=== PATIENT | female | born 1960 | race Caucasian/White ===

== ENCOUNTER 2021-06-27 08:37 | Outpatient (REF) | payer OTHER, SELFPAY ==
--- NOTE | ~2021-06-27 | XR_ITS ---
EXAMINATION: XR HIP, RIGHT XR KUB CLINICAL INFORMATION: Right hip pain. COMPARISON: None TECHNIQUE: KUB and 2 views of the right hip. FINDINGS: There is a large stool burden seen throughout the colon. No dilated loops of large or small bowel are evident. Psoas margins are intact. Oval density seen overlying the right sacrum but may lie within bowel. Sacroiliac joints unremarkable. Degenerative joint disease with facet arthropathy is seen L5-S1. Views of the right hip demonstrate severe narrowing of the superior joint space. Marginal spurring and sclerosis is present. There appears to be some articular irregularity about the joint space. No acute fracture is evident. XR/XR hip RT min 2V IMPRESSION: Severe degenerative change of the right hip without acute fracture or dislocation. Large stool burden.
--- NOTE | ~2021-06-27 | XR_ITS ---
EXAMINATION: XR HIP, RIGHT XR KUB CLINICAL INFORMATION: Right hip pain. COMPARISON: None TECHNIQUE: KUB and 2 views of the right hip. FINDINGS: There is a large stool burden seen throughout the colon. No dilated loops of large or small bowel are evident. Psoas margins are intact. Oval density seen overlying the right sacrum but may lie within bowel. Sacroiliac joints unremarkable. Degenerative joint disease with facet arthropathy is seen L5-S1. Views of the right hip demonstrate severe narrowing of the superior joint space. Marginal spurring and sclerosis is present. There appears to be some articular irregularity about the joint space. No acute fracture is evident. XR/XR KUB IMPRESSION: Severe degenerative change of the right hip without acute fracture or dislocation. Large stool burden.
[2021-06-27 11:26] LABS: Hematocrit 42.9 % (37-47); Hemoglobin 13.8 g/dl (12.0-16.0); Mean Corpuscular HGB Conc 32.2 g/dl (31.0-35.0); Mean Corpuscular Hemoglobin 28.3 pg (27.0-33.0); Mean Corpuscular Volume 87.9 fL (80-98); Mean Platelet Volume 10.2 fL (9.4-12.3); Platelet Count 327 X10*3/uL (160-400); Red Blood Count 4.88 X10*6/uL (4.20-5.50); Red Cell Distribution Width 13.1 % (11.0-16.0); White Blood Count 8.6 X10*3/uL (4.8-10.8)
[2021-06-27 11:27] LABS: Glucose Urine UA NEG (NEG); Leukocyte Esterase Urine 3+ (NEG); Nitrite Urine POS (NEG); PH 5.5 (5.0-8.0); Urine Blood 1+ (NEG); Urine Ketones NEG (NEG); Urine Protein NEG (NEG-TRACE)
[2021-06-27 11:29] LABS: Appearance Urine CLOUDY; Color Urine YELLOW
[2021-06-27 11:36] LABS: Alanine Aminotransferase 18 U/L (0-31); Albumin Level 4.4 g/dL (3.5-5.0); Alkaline Phosphatase 94 U/L (39-117); Anion Gap 13 (12-20); Aspartate Amino Transferase 18 U/L (5-31); Bilirubin Total 0.5 mg/dL (0.0-1.0); Blood Urea Nitrogen 8 mg/dL (9-16); Carbon Dioxide 28 mmol/L (22-29); Chloride 104 mmol/L (96-108); Cholesterol 251 mg/dL; Estimated Glomerular Filt Rate > 60; Glucose Fasting 131 mg/dL (60-99); HDL Cholesterol 49 mg/dL; LDL Cholesterol Calculated 182 mg/dl; Sodium 141 mmol/L (135-145); Total Protein 7.2 g/dL (6.5-8.0); Triglycerides 101 mg/dL
[2021-06-27 11:46] LABS: Bacteria Urine 2+ /LPF; Squamous Epithelial Cell Urine 1+ /LPF; WBC Clumps Urine NOTED; WBC Urine TNTC /HPF (0-4)
[2021-06-27 12:00] LABS: TSH reflex Free T4 5.36 uIU/mL (0.32-4.0)
[2021-06-27 12:02] LABS: Estimated Average Glucose 114 mg/dL; Hemoglobin A1c % 5.6 %
[2021-06-27 12:38] LABS: Free T4 (Free Thyroxine) 0.94 ng/dL (0.71-1.85)
== END 2021-06-27 08:38 | disposition home or self-care (01) ==
LOC: HO.HMGCX 08:37
PROVIDERS: PCP Internal Medicine; Visit Provider Internal Medicine
DX: Z00.00 Encounter for general adult medical examination without abnormal findings (principal); M25.551 Pain in right hip; I10 Essential (primary) hypertension; N20.0 Calculus of kidney
CPT/HCPCS: 36415; 73502; 74018; 80053; 80061; 81001; 83036; 84439; 84443; 85027

== ENCOUNTER 2021-06-27 10:09 | Outpatient (REF) | payer OTHER, SELFPAY ==
[2021-07-03 19:46] LABS: HPV mRNA E6/E7 Not Detected (Not Detected)
== END 2021-06-27 10:10 | disposition home or self-care (01) ==
LOC: HO.LAB 10:09
PROVIDERS: Visit Provider Internal Medicine
DX: Z12.4 Encounter for screening for malignant neoplasm of cervix (principal); Z11.51 Encounter for screening for human papillomavirus (HPV)
CPT/HCPCS: 87624; 88142

== ENCOUNTER 2021-07-03 14:34 | Outpatient (REF) | payer OTHER, SELFPAY ==
[2021-07-03 17:07] LABS: Appearance Urine CLOUDY; Color Urine YELLOW; Glucose Urine UA 250 MG/DL (NEG); Leukocyte Esterase Urine 2+ (NEG); Nitrite Urine POS (NEG); UACC Culture Trigger YES; Urine Blood 2+ (NEG); Urine Ketones NEG (NEG); Urine Protein TRACE MG/DL (NEG-TRACE)
[2021-07-03 17:27] LABS: Amorphous Sediment Urine TRACE /LPF; Bacteria Urine 1+ /LPF; Squamous Epithelial Cell Urine TRACE /LPF; WBC Urine TNTC /HPF (0-4)
== END 2021-07-03 14:35 | disposition home or self-care (01) ==
LOC: HO.HMGCLDS 14:34
PROVIDERS: PCP Internal Medicine; Visit Provider Internal Medicine
DX: Z13.89 Encounter for screening for other disorder (principal)
CPT/HCPCS: 81001; 81003; 87086; 87088; 87186

== ENCOUNTER 2021-07-31 14:23 | Outpatient (REF) | payer OTHER, SELFPAY | END 2021-07-31 14:24 | disposition home or self-care (01) | LOC: HO.HMGCLDS 14:23 | PROVIDERS: PCP Internal Medicine; Visit Provider Internal Medicine | DX: Z13.89 Encounter for screening for other disorder (principal) ==

== ENCOUNTER 2021-08-01 14:59 | Outpatient (REF) | payer OTHER, SELFPAY ==
[2021-08-01 16:33] LABS: Appearance Urine HAZY; Color Urine YELLOW; Glucose Urine UA 100 MG/DL (NEG); Leukocyte Esterase Urine 2+ (NEG); Nitrite Urine NEG (NEG); UACC Culture Trigger YES; Urine Blood NEG (NEG); Urine Ketones NEG (NEG); Urine Protein NEG (NEG-TRACE)
[2021-08-01 16:42] LABS: Mucus Urine 1+ /LPF; Renal Epithelial Cells Urine TRACE /LPF; Squamous Epithelial Cell Urine TRACE /LPF
[2021-08-01 16:43] LABS: RBC Urine 0 /HPF (0)
== END 2021-08-01 15:00 | disposition home or self-care (01) ==
LOC: HO.HMGCLNP 14:59
PROVIDERS: Visit Provider Internal Medicine
DX: N39.0 Urinary tract infection, site not specified (principal); R73.9 Hyperglycemia, unspecified; I10 Essential (primary) hypertension
CPT/HCPCS: 81001; 87086

== ENCOUNTER 2021-08-05 15:35 | Outpatient (REF) | payer OTHER, SELFPAY ==
--- NOTE | ~2021-08-05 | MM_ITS ---
EXAMINATION: MM SCREENING DIGITAL BREAST TOMOSYNTHESIS, BILATERAL CLINICAL INFORMATION: Screening. Asymptomatic. The lifetime risk of breast cancer based on the Tyrer-Cuzick Model is 11.5%. COMPARISON: Mammography: None. TECHNIQUE: Digital breast tomosynthesis is performed in both the craniocaudal and mediolateral oblique views along with computer-aided detection (CAD). Synthesized 2-D images are generated from the tomosynthesis. FINDINGS: There are scattered areas of fibroglandular density (ACR BI-RADS breast composition Category b). No suspicious left breast findings identified. Within the upper outer aspect of the right breast, there is an asymmetric density with some irregular margins approximately 9 cm from nipple, for which spot compression films are recommended. MM/MM tomosynthesis screening BI IMPRESSION: Right breast density for further evaluation, as described. ASSESSMENT: BI-RADS 0: Incomplete - Need Additional Imaging Evaluation. RECOMMENDATION: 1. Additional views of the right breast. 2. Targeted ultrasound if warranted after review of the additional views. 3. Radiology department staff will contact the patient for additional imaging. This patient's information was entered into a reminder system with a target due date for their next mammogram.
== END 2021-08-05 15:36 | disposition home or self-care (01) ==
LOC: HO.MAMMO 15:35
PROVIDERS: Visit Provider Internal Medicine
DX: Z12.31 Encounter for screening mammogram for malignant neoplasm of breast (principal)
CPT/HCPCS: 77063; 77067

== ENCOUNTER 2021-08-08 11:19 | Outpatient (REF) | payer OTHER, SELFPAY ==
[2021-08-08 14:17] LABS: Anion Gap 14 (12-20); Blood Urea Nitrogen 34 mg/dL (9-16); Calcium 10.9 mg/dL (8.4-10.2); Carbon Dioxide 31 mmol/L (22-29); Chloride 101 mmol/L (96-108); Estimated Glomerular Filt Rate 53; Glucose Random 117 mg/dL (60-115); Potassium 4.5 mmol/L (3.3-5.1); Sodium 141 mmol/L (135-145)
== END 2021-08-08 11:20 | disposition home or self-care (01) ==
LOC: HO.HMGCLDS 11:19
PROVIDERS: PCP Internal Medicine; Visit Provider Internal Medicine
DX: I10 Essential (primary) hypertension (principal); E03.9 Hypothyroidism, unspecified
CPT/HCPCS: 36415; 80048

== ENCOUNTER 2021-08-22 12:21 | Outpatient (REF) | payer OTHER, SELFPAY ==
[2021-08-22 14:23] LABS: Anion Gap 13 (12-20); Blood Urea Nitrogen 15 mg/dL (9-16); Calcium 9.5 mg/dL (8.4-10.2); Carbon Dioxide 30 mmol/L (22-29); Chloride 100 mmol/L (96-108); Estimated Glomerular Filt Rate 60; Glucose Random 94 mg/dL (60-115); Potassium 3.8 mmol/L (3.3-5.1); Sodium 139 mmol/L (135-145)
[2021-08-22 14:46] LABS: Vitamin D 25-OH Total 42.5 ng/mL (>30)
[2021-08-25 10:17] LABS: Calcium, Ionized 4.9 mg/dL (4.8-5.6)
[2021-08-25 14:31] LABS: Calcium (PTHI) 9.7 mg/dL (8.6-10.4); PTHI 53 pg/mL (14-64)
== END 2021-08-22 12:22 | disposition home or self-care (01) ==
LOC: HO.HMGCLDS 12:21
PROVIDERS: PCP Internal Medicine; Visit Provider Internal Medicine
DX: E83.52 Hypercalcemia (principal)
CPT/HCPCS: 36415; 80048; 82306; 82330; 83970

== ENCOUNTER 2021-08-28 12:18 | Outpatient (REF) | payer OTHER, SELFPAY ==
--- NOTE | ~2021-08-28 | MM_ITS ---
EXAMINATION: MM DIAGNOSTIC DIGITAL BREAST TOMOSYNTHESIS, RIGHT CLINICAL INFORMATION: Recall from screening for asymmetric density posterior upper right breast on MLO tomography. TC score 12%. COMPARISON: Mammography: 08/05/2021; outside mammography 04/05/2018, 05/08/2015, 08/21/2013 ([facility], [place], [place]). TECHNIQUE: Digital breast tomosynthesis is performed. 2D images are generated from the tomosynthesis. The following views are obtained: Spot CC, spot MLO, rolled CC x2. FINDINGS: There are scattered areas of fibroglandular density (ACR BI-RADS breast composition Category b). There are scattered fibroglandular densities which appears similar to prior outside studies. There is no architectural abnormality or persistent asymmetric density. Results are discussed with the patient at time of visit. As a precaution, short interval six-month follow-up right mammography will be requested in order to exclude remote possibility of an occult developing density. MM/MM tomosynthesis added views R IMPRESSION: Additional views show no persistent asymmetric density. No significant changes. ASSESSMENT: BI-RADS 3: Probably Benign RECOMMENDATION: Diagnostic right mammography in 6 months. This patient's information was entered into a reminder system with a target due date for their next mammogram.
== END 2021-08-28 12:19 | disposition home or self-care (01) ==
LOC: HO.MAMMO 12:18
PROVIDERS: Visit Provider Internal Medicine
DX: R92.2 Inconclusive mammogram (principal)
CPT/HCPCS: 77061; 77065

== ENCOUNTER 2021-09-16 07:45 | Outpatient (REF) | payer OTHER, SELFPAY ==
[2021-09-16 11:53] LABS: Alanine Aminotransferase 14 U/L (0-31); Albumin Level 4.5 g/dL (3.5-5.0); Alkaline Phosphatase 81 U/L (39-117); Anion Gap 15 (12-20); Aspartate Amino Transferase 15 U/L (5-31); Bilirubin Total 0.6 mg/dL (0.0-1.0); Blood Urea Nitrogen 20 mg/dL (9-16); Calcium 10.2 mg/dL (8.4-10.2); Carbon Dioxide 28 mmol/L (22-29); Chloride 102 mmol/L (96-108); Cholesterol 247 mg/dL; Estimated Glomerular Filt Rate 53; Glucose Fasting 121 mg/dL (60-99); HDL Cholesterol 53 mg/dL; LDL Cholesterol Calculated 175 mg/dl; Potassium 4.3 mmol/L (3.3-5.1); Sodium 141 mmol/L (135-145); Total Protein 7.6 g/dL (6.5-8.0); Triglycerides 96 mg/dL
[2021-09-16 12:14] LABS: TSH reflex Free T4 6.92 uIU/mL (0.32-4.0)
[2021-09-16 12:52] LABS: Free T4 (Free Thyroxine) 1.04 ng/dL (0.71-1.85)
[2021-09-16 13:39] LABS: Estimated Average Glucose 134 mg/dL; Hemoglobin A1c % 6.3 %
== END 2021-09-16 07:46 | disposition home or self-care (01) ==
LOC: HO.HMGCLDS 07:45
PROVIDERS: PCP Internal Medicine; Visit Provider Internal Medicine
DX: E78.5 Hyperlipidemia, unspecified (principal); E03.9 Hypothyroidism, unspecified; I10 Essential (primary) hypertension; R73.9 Hyperglycemia, unspecified
CPT/HCPCS: 36415; 80053; 80061; 83036; 84439; 84443

== ENCOUNTER 2022-03-02 09:44 | Outpatient (REF) | payer OTHER, SELFPAY ==
--- NOTE | ~2022-03-02 | MM_ITS ---
EXAMINATION: MM DIAGNOSTIC DIGITAL BREAST TOMOSYNTHESIS, RIGHT CLINICAL INFORMATION: Short interval six-month follow-up right breast for parenchymal asymmetry initially noted on mammography 08/05/2021. TC score 11%. COMPARISON: Mammography: 08/28/2021, 08/05/2021; outside mammography 04/05/2018, 05/08/2015, 08/21/2013 ([facility], [place], [place]). TECHNIQUE: Digital breast tomosynthesis is performed in both the craniocaudal and mediolateral oblique views along with computer-aided detection (CAD). Synthesized 2D images are generated from the tomosynthesis. FINDINGS: There are scattered areas of fibroglandular density (ACR BI-RADS breast composition Category b). Parenchymal pattern is similar to prior studies dating back to 2012. There is no developing density or interval architectural abnormality or mass or abnormal calcifications. No significant changes. Finding for recall noted in 2020 is no longer demonstrated. Results are provided to the patient at time of visit by the technologist. MM/MM tomosynthesis diagnostic RT IMPRESSION: -No mammographic evidence of malignancy. -No significant changes from prior studies. ASSESSMENT: BI-RADS 2: Benign RECOMMENDATION: Routine annual mammography screening, due in 6 months. This patient's information was entered into a reminder system with a target due date for their next mammogram.
== END 2022-03-02 09:45 | disposition home or self-care (01) ==
LOC: HO.MAMMO 09:44
PROVIDERS: Visit Provider Internal Medicine
DX: R92.2 Inconclusive mammogram (principal)
CPT/HCPCS: 77061; 77065

== ENCOUNTER → 2022-03-12 12:57 | Outpatient (BNVA) | payer OTHER, SELFPAY | PROVIDERS: PCP Internal Medicine; Referring Provider Internal Medicine; Visit Provider Internal Medicine Gastroenterology | DX: K51.90 Ulcerative colitis, unspecified, without complications (principal); K21.9 Gastro-esophageal reflux disease without esophagitis; R93.3 Abnormal findings on diagnostic imaging of other parts of digestive tract | CPT/HCPCS: 99202 ==

== ENCOUNTER 2022-08-19 07:37 | Outpatient (REF) | payer OTHER, SELFPAY ==
--- NOTE | ~2022-08-19 | MM_ITS ---
EXAMINATION: MM SCREENING DIGITAL BREAST TOMOSYNTHESIS, BILATERAL CLINICAL INFORMATION: Screening. Asymptomatic. The lifetime risk of breast cancer based on the Tyrer-Cuzick Model is 10%. COMPARISON: Mammography: 03/02/2022, 08/28/2021, 08/05/2021, outside mammography 04/05/2018 ([facility], [place], [place]). TECHNIQUE: Digital breast tomosynthesis is performed in both the craniocaudal and mediolateral oblique views along with computer-aided detection (CAD). Synthesized 2D images are generated from the tomosynthesis. FINDINGS: There are scattered areas of fibroglandular density (ACR BI-RADS breast composition Category b). There are no significant masses, abnormal calcifications, or other abnormalities. No developing density or interval architectural abnormality. There are scattered bilateral round and ductal secretory calcifications. The axilla and skin contours are unremarkable. MM/MM tomosynthesis screening BI IMPRESSION: No mammographic evidence of malignancy. ASSESSMENT: BI-RADS 2: Benign RECOMMENDATION: Routine annual mammography screening. This patient's information was entered into a reminder system with a target due date for their next mammogram.
== END 2022-08-19 07:38 | disposition home or self-care (01) ==
LOC: HO.MAMMO 07:37
PROVIDERS: PCP Internal Medicine; Visit Provider Internal Medicine
DX: Z12.31 Encounter for screening mammogram for malignant neoplasm of breast (principal)
CPT/HCPCS: 77063; 77067

== ENCOUNTER 2022-11-10 08:18 | Outpatient (REF) | payer OTHER, SELFPAY ==
[2022-11-10 11:49] LABS: MANUAL DIFF FLAG NO
[2022-11-10 12:02] LABS: Basophils Absolute Auto 0.1 X10*3/uL (0.0-0.2); Basophils Percent Auto 0.9 % (0-2); Eosinophils Absolute Auto 0.3 X10*3/uL (0.0-0.4); Eosinophils Percent Auto 3.1 % (0-4); Hemoglobin 12.3 g/dl (12.0-16.0); Imm Gran Abs Auto 0.02 X10*3/uL (0.00-0.03); Imm Gran Pct Auto 0.2 % (0.0-0.4); Lymphocytes Percent Auto 37.3 % (20-40); Mean Corpuscular HGB Conc 31.5 g/dl (31.0-35.0); Mean Corpuscular Hemoglobin 27.7 pg (27.0-33.0); Mean Corpuscular Volume 87.8 fL (80.0-98.0); Mean Platelet Volume 10.2 fL (9.4-12.3); Monocytes Absolute Auto 0.8 X10*3/uL (0.1-1.2); Monocytes Percent Auto 9.9 % (2-11); Neutrophils Absolute Auto 3.9 x10*3/uL (2.0-8.3); Neutrophils Percent Auto 48.6 % (45-73); Platelet Count 288 X10*3/uL (160-400); Red Blood Count 4.44 X10*6/uL (4.20-5.50); Red Cell Distribution Width 13.8 % (11.0-16.0); White Blood Count 8.1 X10*3/uL (4.8-10.8)
[2022-11-10 12:20] LABS: Estimated Average Glucose 134 mg/dL; Hemoglobin A1C 150.2266 umol/L; Hemoglobin A1c % 6.3 %
[2022-11-10 13:04] LABS: Alanine Aminotransferase 14 U/L (0-31); Albumin Level 4.3 g/dL (3.5-5.0); Alkaline Phosphatase 74 U/L (39-117); Anion Gap 15 (12-20); Aspartate Amino Transferase 19 U/L (5-31); Bilirubin Total 0.5 mg/dL (0.0-1.0); Blood Urea Nitrogen 25 mg/dL (9-16); Carbon Dioxide 29 mmol/L (22-29); Chloride 101 mmol/L (96-108); Cholesterol 171 mg/dL; Estimated Glomerular Filt Rate 42; Glucose Fasting 145 mg/dL (60-99); HDL Cholesterol 53 mg/dL; LDL Cholesterol Calculated 90 mg/dl; Potassium 4.3 mmol/L (3.3-5.1); Sodium 141 mmol/L (135-145); Total Protein 7.4 g/dL (6.5-8.0); Triglycerides 144 mg/dL
[2022-11-10 13:05] LABS: TSH reflex Free T4 2.84 uIU/mL (0.32-4.0)
== END 2022-11-10 08:19 | disposition home or self-care (01) ==
LOC: HO.HMGCLDS 08:18
PROVIDERS: PCP Internal Medicine; Visit Provider Internal Medicine
DX: E03.9 Hypothyroidism, unspecified (principal); R73.9 Hyperglycemia, unspecified; E78.5 Hyperlipidemia, unspecified; I10 Essential (primary) hypertension
CPT/HCPCS: 36415; 80053; 80061; 83036; 84443; 85025

== ENCOUNTER 2023-03-12 11:51 | Day surgery (SDC) | payer OTHER, SELFPAY ==
--- NOTE | 2023-03-11 10:26 | P.CONAN_ITS ---
Documented by User: Marie Martinez NP 03/11/23 10:28 HPI - Anesthesia Eval Consult details Narrative: 62yo F for Upper Endoscopy and Colonoscopy [facility] Active Problems Active Problems: All Active Problems (Updated 12/01/22 @ 08:08 by Karen Duval MD) GERD (gastroesophageal reflux disease) (Acute) Hypercalcemia (Acute) Hyperglycemia (Acute) Hyperlipidemia (Acute) Hypothyroid (Acute) Annual physical exam (Acute) Gestational diabetes mellitus (Acute) HTN (hypertension) (Acute) Abnormal colonoscopy (Acute) Ulcerative colitis (Acute) Normal Pap smear (Acute) Hyperparathyroidism (Acute) Nephrolithiasis (Acute) Hip pain, right (Acute) Past Medical History Medical History Abnormal colonoscopy Annual physical exam Gestational diabetes mellitus Hip pain, right History of kidney stones HTN (hypertension) Hx of nephrolithotomy with removal of calculi Hypercalcemia Hyperglycemia Hyperlipidemia Hyperparathyroidism Hypothyroid Nephrolithiasis Normal Pap smear Ulcerative colitis Family History Family History Mother Mental health disorder Father No problems noted. Surgical History Surgical History History of total right hip replacement Hx of section Hx of parathyroidectomy Social History Social History Household Members Other:: , special education aid Housing: House Patient Tobacco Use Status: Former Tobacco user Years Smoked: 10 yrs e-Cigarette/Vaping Use: Never Used Second Hand Smoke Exposure: No Are you DNR?: No Advance Directives: No Advance Directives Information Provided: Yes Nutrition Risks: No Nutritional Risk service: No Current occupational status: employed Cognitive needs: No Hearing needs: No Vision needs: No Meds Allergies Allergy/AdvReac Type Severity Reaction Status Date / Time nitrofurantoin AdvReac dry heves Verified 03/12/23 12:28 [From Macrobid] Sulfa (Sulfonamide AdvReac hives Verified 03/12/23 12:28 Antibiotics) Home Medications Medication Instructions Recorded Confirmed Last Taken Type acetaminophen 650 mg 650 mg PO Q12H 07/31/21 01/27/23 Unknown History tablet,extended release (Tylenol Arthritis Pain) omeprazole 20 mg capsule,delayed 20 mg PO DAILY 12/01/22 01/27/23 Unknown History release olmesartan 20 1 tab PO DAILY 01/27/23 01/27/23 Unknown History mg-hydrochlorothiazide 12.5 mg tablet Exam Exam Date and Time: March 11, 2023 1026 Pertinent Lab Results Pertinent Lab Results: Laboratory Tests 11/10/22 11/10/22 08:22 08:22 WBC 8.1 Hgb 12.3 Hct 39.0 Plt Count 288 Sodium 141 Potassium 4.3 Chloride 101 Carbon Dioxide 29 BUN 25 H Creatinine 1.28 Assessment and Plan Assessment Anesthesia Assessment: Chart Reviewed Documented by User: Lnio Clark MD 03/12/23 13:04 PMF Past Medical History Medical History Abnormal colonoscopy Annual physical exam Gestational diabetes mellitus Hip pain, right History of kidney stones HTN (hypertension) Hx of nephrolithotomy with removal of calculi Hypercalcemia Hyperglycemia Hyperlipidemia Hyperparathyroidism Hypothyroid Nephrolithiasis Normal Pap smear Ulcerative colitis Family History Family History Mother Mental health disorder Father No problems noted. Family history of problems with anesthesia: No Surgical History Surgical History History of total right hip replacement Hx of section Hx of parathyroidectomy History of Problems with Anesthesia: No Social History Social History Household Members Other:: , special education aid Housing: House Patient Tobacco Use Status: Former Tobacco user Years Smoked: 10 yrs e-Cigarette/Vaping Use: Never Used Second Hand Smoke Exposure: No Are you DNR?: No Advance Directives: No Advance Directives Information Provided: Yes Nutrition Risks: No Nutritional Risk service: No Current occupational status: employed Cognitive needs: No Hearing needs: No Vision needs: No Meds Allergies Allergy/AdvReac Type Severity Reaction Status Date / Time nitrofurantoin AdvReac dry heves Verified 03/12/23 12:28 [From Macrobid] Sulfa (Sulfonamide AdvReac hives Verified 03/12/23 12:28 Antibiotics) Home Medications Medication Instructions Recorded Confirmed Last Taken Type acetaminophen 650 mg 650 mg PO Q12H 07/31/21 01/27/23 Unknown History tablet,extended release (Tylenol Arthritis Pain) omeprazole 20 mg capsule,delayed 20 mg PO DAILY 12/01/22 01/27/23 Unknown History release olmesartan 20 1 tab PO DAILY 01/27/23 01/27/23 Unknown History mg-hydrochlorothiazide 12.5 mg tablet Exam Airway Mallampati Class: III TM Dist: >3cm Neck ROM: Full Assessment and Plan Assessment Anesthesia Assessment: Anesthesia Plan Discussed Final Anesthetic Review Family History of Problems with Anesthesia: No History of Problems with Anesthesia: No NPO: Yes ASA Class: II Final Preanesthetic Review: No Changes in Pt Med Stat, Meds/Allgs Chart Rev iewed, Consent Obtained/Reviewed and Anes Risks/Benef Reviewed Patient Risk: Low Procedure Risk: Low Anesthetic Plan Anesthetic Plan: MAC: Disposition: Standard PACU
[2023-03-12 07:22] VITALS: BMI 30.2
[2023-03-12] MEDS: Lactated Ringers 1,000 ML 100 ML IVCONT (12:18)
--- NOTE | 2023-03-12 12:49 | MHC.SHP ---
Pre-Procedural Eval Section A Date of Service: 03/12/23 The patient is an INPATIENT: No The History & Physical has been completed within 30 days and I have reviewed it.: No Section B Chief Complaint: Screening, UC, GERD Relevant Family History (Specify if Yes): No Relevant Social History: None Present Medications: see Short Stay Collaborative assessment Medical History: Significant History (History of kidney stones HTN (hypertension) Hx of nephrolithotomy with removal of calculi Hypercalcemia Hyperglycemia Hyperlipidemia Hyperparathyroidism Hypothyroid Nephrolithiasis Normal Pap smear Ulcerative colitis) History of Previous Operations: Relevant previous surgery/procedure and date(s) (History of total right hip replacement Hx of section Hx of parathyroidectomy) Allergies: Allergies Allergy/AdvReac Type Severity Reaction Status Date / Time nitrofurantoin AdvReac dry heves Verified 03/12/23 12:28 [From Macrobid] Sulfa (Sulfonamide AdvReac hives Verified 03/12/23 12:28 Antibiotics) Review of Systems Sugical H&P ROS: Negative: Constitution, Cardiovascular, Respiratory and Gastrointestinal Exam Surgical H&P Exam: Normal: Heart, Normal: Lungs, Normal: Extremities and Normal: Abdomen Plan Diagnosis/Plan: Unchanged I have reviewed the history and physical and performed a pertinent physical examination on my patient. No changes have occurred unless specified. Time Spent With Patient Time: Total time managing care of this patient today ____ minutes.
[2023-03-12 12:54] VITALS: BP 149/77; PULSE 83; RESP 18; TEMP 36.4; O2SAT 97
--- NOTE | 2023-03-12 14:27 | W.PM.OPN ---
Operative Note Operative Note Date of Service: 03/12/23 Narrative: FLEXIBLE TRANSORAL UPPER GASTROINTESTINAL ENDOSCOPY WITH BIOPSIES AND COLONOSCOPY TILL CECUM WITH BIOPSIES AND CHROMOENDOSCOPY Pre-op diagnosis: screening, UC, GERD Post-op diagnosis: Gastritis, gastric polyps, hiatal hernia, GERD? Endoscopist:? Scar Juarez MD Anesthesia:?MAC UPPER ENDOSCOPY Consent: Indications for the procedure and potential complications of bleeding, perforation, reaction to medications and missed diagnosis were discussed with the patient and informed consent was obtained. Instrument: Olympus GIF H 190 mid size upper endoscope Monitoring: Vital signs and clinical assessment, continuous EKG monitoring, Pulse oximetry, Carbon Dioxide monitoring and blood pressure monitoring were done throughout the procedure. Procedure: The patient was placed in the left lateral decubitis position and pre-procedure medications were administered and a bite block was placed. The endoscope was inserted into the mouth and advanced under direct vision to the third part of duodenum. A careful inspection was made as the upper endoscope was withdrawn including a retroflexed examination of the proximal stomach; Findings and interventions are described below. Findings: Larynx: Normal Esophagus: GE junction at 34 cms, hiatal hernia 34 to 37 cms. Tortuous esophagus. No esophagitis or Beach's. Stomach: Mild gastric erythema. Biopsies were obtained. A few 2-3 mm benign appearing polyps in the gastric body - biopsied. Grade 3 flap valve on retroflexed examination of the cardia. Duodenum: Normal bulb and descending duodenum Intervention: Biopsies as noted above COLONOSCOPY PROCEDURE NOTE Consent: Indications for the procedure and potential complications of bleeding, perforation, reaction to medications and missed diagnosis were discussed with the patient and informed consent was obtained. Instrument: Olympus PCF H 190 L variable stiffness pediatric colonoscope Monitoring: Vital signs and clinical assessment, intermittent blood pressure monitoring, continuous EKG monitoring, Pulse oximetry and Carbon Dioxide monitoring were done throughout the procedure. Colon withdrawl time was 25 minutes. Procedure: The patient was placed in the left lateral decubitis position and pre-procedure medications were administered. After a digital rectal examination of the ano-rectum, the video colonoscope was inserted into the rectum and advanced through the colon to the cecum. Chromoendoscopy (with methylene blue) was performed to examine the colon. The colonoscope was slowly withdrawn in a retrograde panoramic fashion and the colon mucosa was carefully examined including a retroflexed view of the rectum. Findings and interventions are described below. Procedure Difficulty: : LLQ pressure was applied to intubate the cecum Findings: Terminal Ileum: Not evaluated Cecum: Normal Ascending Colon: Normal Transverse Colon: Normal Descending Colon: Normal Sigmoid Colon: Moderate diverticulosis Rectum: Normal Ano-rectum: Moderate internal hemorrhoids Colon preparation: Good after some irrigation Impression and Post Procedure Diagnosis: Endoscopy Findings: ESOPHAGUS: hiatal hernia STOMACH: gastritis and gastric polyps Colonoscopy Findings: No polyps removed Inactive UC throughout the colon - biopsies obtained from AC, TC, DC, SC and rectum to check for dysplasia Moderate diverticulosis seen in the sigmoid colon Moderate hemorrhoids on retroflexed exam. Plan: Await pathology results Patient to schedule a FU appointment in the GI Clinic with Scar Juarez M.D. Repeat Colonoscopy interval based on path results - in 2 years if no dysplasia on colon biopsies. Above findings were reviewed with the patient and Hiatal Hernia, gastric polyps and diverticulosis handouts were given in the discharge area
[2023-03-12 15:05] VITALS: BP 149/77; PULSE 83; RESP 18; TEMP 36.6; O2SAT 97
[2023-03-12 15:20] VITALS: BP 131/73; PULSE 69; RESP 18; O2SAT 97
[2023-03-12 15:35] VITALS: BP 135/73; PULSE 66; RESP 18; TEMP 36.6; O2SAT 97
== END 2023-03-12 16:05 | disposition home or self-care (01) ==
PROVIDERS: PCP Internal Medicine; Visit Provider Internal Medicine Gastroenterology
PROC: (CPT 45380; principal; 2023-03-12 13:40)
DX: Z12.11 Encounter for screening for malignant neoplasm of colon (principal); K51.90 Ulcerative colitis, unspecified, without complications; K57.30 Diverticulosis of large intestine without perforation or abscess without bleeding; K44.9 Diaphragmatic hernia without obstruction or gangrene; K21.9 Gastro-esophageal reflux disease without esophagitis; K29.50 Unspecified chronic gastritis without bleeding; K31.7 Polyp of stomach and duodenum; K52.9 Noninfective gastroenteritis and colitis, unspecified; K64.8 Other hemorrhoids
CPT/HCPCS: 45380; 43239; 88305; 88342; Q9968

== ENCOUNTER 2023-06-24 07:49 | Outpatient (REF) | payer OTHER, SELFPAY ==
[2023-06-24 12:02] LABS: Estimated Average Glucose 131 mg/dL; Hemoglobin A1c % 6.2 % (<6.0)
[2023-06-24 12:19] LABS: Alanine Aminotransferase 14 U/L (0-31); Albumin Level 4.2 g/dL (3.5-5.0); Alkaline Phosphatase 79 U/L (39-117); Anion Gap 13 (12-20); Aspartate Amino Transferase 17 U/L (5-31); Bilirubin Total 0.5 mg/dL (0.0-1.0); Blood Urea Nitrogen 20 mg/dL (9-16); Calcium 10.1 mg/dL (8.4-10.2); Carbon Dioxide 30 mmol/L (22-29); Chloride 100 mmol/L (96-108); Cholesterol 185 mg/dL (<200); Estimated Glomerular Filt Rate 58; Glucose Fasting 138 mg/dL (60-99); HDL Cholesterol 56 mg/dL (>40); LDL Cholesterol Calculated 110 mg/dL (<100); Potassium 4.4 mmol/L (3.3-5.1); Sodium 139 mmol/L (135-145); Total Protein 7.5 g/dL (6.5-8.0); Triglycerides 95 mg/dL (<150)
== END 2023-06-24 07:50 | disposition home or self-care (01) ==
LOC: HO.HMGCLDS 07:49
PROVIDERS: PCP Internal Medicine; Visit Provider Internal Medicine
DX: E03.9 Hypothyroidism, unspecified (principal); E78.5 Hyperlipidemia, unspecified; R73.9 Hyperglycemia, unspecified; I10 Essential (primary) hypertension
CPT/HCPCS: 36415; 80053; 80061; 83036; 84443

== ENCOUNTER 2023-06-30 11:34 | Outpatient (AMB) | payer OTHER, SELFPAY ==
--- NOTE | 2023-06-30 11:39 | A.OFFPC_ITS ---
Vital Signs 06/30/23 11:43 Height 5 ft 2 in Weight 177 lb BMI 32.4 BP 126/80 Blood Pressure Location Lt brachial Position Sitting Pulse 79 Pulse Source Pulse Oximeter Pulse Oximetry (%) 98 Oxygen Delivery Method Room Air Intake Visit Reasons: 5m follow up HTN Intake Note: Pt is here today for 5 months follow up visit on HTN. Allergies nitrofurantoin [From Macrobid] Adverse Reaction (Verified 06/30/23 11:47) dry heves Sulfa (Sulfonamide Antibiotics) Adverse Reaction (Verified 06/30/23 11:47) hives Medication List - Last Reconciled 06/30/23 by Karen Duval MD acetaminophen ER (Tylenol Arthritis Pain) 650 mg PO Q12H albuterol sulfate 90 mcg/actuation (ProAir HFA) 2 puffs inhalation Q4-6H PRN levothyroxine 25 mcg PO DAILY multivitamin 1 tab PO DAILY olmesartan-hydrochlorothiazide 20-12.5 mg 0.5 tabs PO DAILY omeprazole 20 mg PO DAILY rosuvastatin (Crestor) 20 mg PO DAILY Tobacco use date assessed: 06/30/23 Dental Screening Dental Screen Date: 06/30/23 Did you have a dental visit in the last 12 months?: No Did you have a dental problem in the last 6 months where you did not have access to dental care?: No Was dental information given to patient?: Patient declined HPI 5m follow up HTN HPI Details Pt presents for f/u hyperlipidemia, HTN, hypothyroidism stable on current medications. Patient has been following ADA diet for hyperglycemia. [facility] Medical History Abnormal colonoscopy Annual physical exam Gestational diabetes mellitus Hip pain, right History of kidney stones HTN (hypertension) Hx of nephrolithotomy with removal of calculi Hypercalcemia Hyperglycemia Hyperlipidemia Hyperparathyroidism Hypothyroid Nephrolithiasis Normal Pap smear Ulcerative colitis Surgical History History of total right hip replacement Hx of section Hx of parathyroidectomy Family History Mother Mental health disorder Father No problems noted. Social History Household Members Other:: , special education aid Housing: House Patient Tobacco Use Status: Former Tobacco user Years Smoked: 10 yrs e-Cigarette/Vaping Use: Never Used Second Hand Smoke Exposure: No service: No Current occupational status: employed Cognitive needs: No Hearing needs: No Vision needs: No Questionnaire Thrive Questionnaire Date Thrive assessed: 12/01/22 BEATRIZ-7 AMB Questionnaire BEATRIZ-7 Date BEATRIZ - 7 assessed: 12/01/22 Source: Developed by Drs. Salas [place], Katarina Ramirez, Federico Aguilar and colleagues, with an educational tran from [employer]. Review of Systems Const All systems reviewed & are unremarkable except as noted in HPI and below Reports no additional complaints Eyes Reports no additional complaints ENT Reports no additional complaints Card Reports no additional complaints Resp Reports no additional complaints GI Reports no additional complaints Reports no additional complaints Physical exam (Primary Care) Vital Signs: Last Vital Signs Pulse 79 06/30/23 11:43 BP 126/80 06/30/23 11:43 Pulse Ox 98 06/30/23 11:43 Oxygen Delivery Method Room Air 06/30/23 11:43 BMI result Body Mass Index 32.4 Tobacco/Smoking Status: Tobacco use Status Tobacco use date assessed 06/30/23 06/30/23 11:51 Patient Tobacco Use Status Former Tobacco user 06/30/23 11:40 e-Cigarette/Vaping Use Never Used 06/30/23 11:40 Thrive Assessment: Date of Thrive Assessment Date Thrive assessed 12/01/22 06/30/23 11:40 Const General: no acute distress HENMT Head: Yes normal to inspection Face and sinus: Yes normal facial exam Neck Neck: Yes supple Resp Effort & Inspection: normal respiratory effort Auscultation: clear to auscultation bilaterally Cardio Rhythm: regular rhythm Heart sounds: S1 normal heart sound present and S2 normal heart sound present GI Inspection: Yes normal to inspection Palpation (GI): Soft to palpation Percussion: Yes normal to percussion Auscultation: normal bowel sounds Assessment and Plan Assessment & Plan (1) Hyperlipidemia: Code(s): E78.5 - Hyperlipidemia, unspecified Plan: Continue statin (2) Hyperglycemia: Code(s): R73.9 - Hyperglycemia, unspecified Plan: A1c is 6.2, ADA diet increase physical activity weight loss discussed with the patient. Follow-up in November with a fasting labs before (3) Hypothyroid: Code(s): E03.9 - Hypothyroidism, unspecified Plan: Continue levothyroxine (4) HTN (hypertension): Code(s): I10 - Essential (primary) hypertension Plan: Continue current medications Orders: Orders Comprehensive [place]. Panel Fast 5 Months E03.9 - Hypothyroidism, unspecified, E78.5 - Hyperlipidemia, unspecified, I10 - Essential (primary) hypertension, R73.9 - Hyperglycemia, unspecified Hemoglobin A1c 5 Months E03.9 - Hypothyroidism, unspecified, E78.5 - Hyperlipidemia, unspecified, I10 - Essential (primary) hypertension, R73.9 - Hyperglycemia, unspecified Lipid Panel 5 Months E03.9 - Hypothyroidism, unspecified, E78.5 - Hyperlipidemia, unspecified, I10 - Essential (primary) hypertension, R73.9 - Hyperglycemia, unspecified TSH reflex Free T4 5 Months E03.9 - Hypothyroidism, unspecified, E78.5 - Hyperlipidemia, unspecified, I10 - Essential (primary) hypertension, R73.9 - Hyperglycemia, unspecified Microalbumin, Random (w Creat) 5 Months E03.9 - Hypothyroidism, unspecified, E78.5 - Hyperlipidemia, unspecified, I10 - Essential (primary) hypertension, R73.9 - Hyperglycemia, unspecified Coding Level of Care Code Est Pt Level 4 (15451) Diagnoses Hyperlipidemia E78.5 Hyperglycemia R73.9 Hypothyroid E03.9 HTN (hypertension) I10
[2023-06-30 11:43] VITALS: BP 126/80; PULSE 79; O2SAT 98; BMI 32.4
== END 2023-06-30 12:30 | disposition home or self-care (01) ==
PROVIDERS: Visit Provider Internal Medicine
DX: E78.5 Hyperlipidemia, unspecified (principal); R73.9 Hyperglycemia, unspecified; E03.9 Hypothyroidism, unspecified; I10 Essential (primary) hypertension
CPT/HCPCS: 99214

== ENCOUNTER 2023-11-12 10:56 | Outpatient (REF) | payer SELFPAY ==
--- NOTE | ~2023-11-12 | MM_ITS ---
EXAMINATION: MM SCREENING DIGITAL BREAST TOMOSYNTHESIS, BILATERAL CLINICAL INFORMATION: Screening. Asymptomatic. COMPARISON: Mammography: This study is compared with prior exams dating back to 2018. TECHNIQUE: Digital breast tomosynthesis is performed in both the craniocaudal and mediolateral oblique views along with computer-aided detection (CAD). Synthesized 2D images are generated from the tomosynthesis. FINDINGS: There are scattered areas of fibroglandular density (ACR BI-RADS breast composition Category b). There are no significant masses, abnormal calcifications, or other abnormalities. There are bilateral benign calcifications in each breast. MM/MM tomosynthesis screening BI IMPRESSION: No mammographic evidence of malignancy. ASSESSMENT: BI-RADS BI-RADS 2 - Benign Findings RECOMMENDATION: Routine annual mammography screening. 1 year F/U This examination should not preclude the clinical evaluation of a suspicious palpable abnormality. This patient's information was entered into a reminder system with a target due date for their next mammogram.
== END 2023-11-12 10:57 | disposition home or self-care (01) ==
LOC: HO.MAMMO 10:56
PROVIDERS: Visit Provider Internal Medicine
DX: Z12.31 Encounter for screening mammogram for malignant neoplasm of breast (principal)
CPT/HCPCS: 77063; 77067

== ENCOUNTER → 2023-11-12 11:00 | Outpatient (BNV) | payer MEDICAID, SELFPAY | PROVIDERS: Visit Provider Radiology Diagnostic Radiology | DX: Z12.31 Encounter for screening mammogram for malignant neoplasm of breast (principal) | CPT/HCPCS: 77063; 77067 ==

== ENCOUNTER 2023-11-30 07:32 | Outpatient (REF) | payer SELFPAY ==
[2023-11-30 11:46] LABS: Estimated Average Glucose 134 mg/dL; Hemoglobin A1c % 6.3 % (<6.0)
[2023-11-30 12:08] LABS: Alanine Aminotransferase 15 U/L (0-31); Albumin Level 4.1 g/dL (3.5-5.0); Alkaline Phosphatase 88 U/L (39-117); Anion Gap 12 (12-20); Aspartate Amino Transferase 18 U/L (5-31); Bilirubin Total 0.4 mg/dL (0.0-1.0); Blood Urea Nitrogen 14 mg/dL (9-16); Calcium 9.5 mg/dL (8.4-10.2); Carbon Dioxide 31 mmol/L (22-29); Chloride 101 mmol/L (96-108); Cholesterol 169 mg/dL (<200); Estimated Glomerular Filt Rate 54; Glucose Fasting 128 mg/dL (60-99); HDL Cholesterol 55 mg/dL (>40); LDL Cholesterol Calculated 95 mg/dL (<100); Sodium 140 mmol/L (135-145); TSH reflex Free T4 4.29 uIU/mL (0.32-4.0); Total Protein 7.6 g/dL (6.5-8.0); Triglycerides 95 mg/dL (<150)
[2023-11-30 12:14] LABS: Creatinine Urine 88.38 mg/dL; Microalbum/Creatinine Ratio Ur 6.7 ug/mg cr (<30)
[2023-11-30 15:05] LABS: Free T4 (Free Thyroxine) 0.93 ng/dL (0.71-1.85)
== END 2023-11-30 07:33 | disposition home or self-care (01) ==
LOC: HO.HMGCLDS 07:32
PROVIDERS: PCP Internal Medicine; Visit Provider Internal Medicine
DX: R73.9 Hyperglycemia, unspecified (principal); E78.5 Hyperlipidemia, unspecified; E03.9 Hypothyroidism, unspecified; I10 Essential (primary) hypertension
CPT/HCPCS: 36415; 80053; 80061; 82043; 82570; 83036; 84439; 84443

== ENCOUNTER 2023-12-02 07:32 | Outpatient (AMB) | payer SELFPAY ==
[2023-12-02 07:44] VITALS: BP 126/80; PULSE 80; O2SAT 96; BMI 32.9
--- NOTE | 2023-12-02 07:44 | A.OFFPC_ITS ---
Vital Signs 12/02/23 07:44 Height 5 ft 2 in Weight 180 lb BMI 32.9 BP 126/80 Blood Pressure Location Lt brachial Position Sitting Pulse 80 Pulse Source Pulse Oximeter Pulse Oximetry (%) 96 Oxygen Delivery Method Room Air Intake Visit Reasons: PE Intake Note: Pt is here today for her PE: Last papsmear 06/29/21, mammogram 11/12/23, colonoscopy 02/2023 Allergies nitrofurantoin [From Macrobid] Adverse Reaction (Verified 12/02/23 07:45) dry heves Sulfa (Sulfonamide Antibiotics) Adverse Reaction (Verified 12/02/23 07:45) hives Tobacco use date assessed: 12/02/23 Dental Screening Dental Screen Date: 12/02/23 Did you have a dental visit in the last 12 months?: No Was dental information given to patient?: No HPI PE HPI Details Pt presents for PE. Patient had few episodes of allergic reaction with hives and some shortness of breath after eating in different restaurants. Symptoms resolved after patient took Benadryl and use of albuterol inhaler. She did not go to the emergency room. [facility] Medical History (Updated 12/02/23 @ 09:09 by Karen Duval MD) History of kidney stones Hypercalcemia Hyperglycemia Hyperlipidemia Hypothyroid Annual physical exam Gestational diabetes mellitus HTN (hypertension) Abnormal colonoscopy Ulcerative colitis Normal Pap smear Hyperparathyroidism Nephrolithiasis Hip pain, right Hx of nephrolithotomy with removal of calculi Surgical History History of total right hip replacement Hx of parathyroidectomy Hx of section Family History Mother Mental health disorder Father No problems noted. Social History Household Members Other:: , special education aid Housing: House Patient Tobacco Use Status: Former Tobacco user Years Smoked: 10 yrs e-Cigarette/Vaping Use: Never Used Second Hand Smoke Exposure: No service: No Current occupational status: employed Cognitive needs: No Hearing needs: No Vision needs: No Questionnaire PHQ-9 Over the last 2 weeks, how often have you been bothered by any of the following problems? 1. Little interest or pleasure in doing things: not at all 2. Feeling down, depressed, or hopeless: not at all 3. Trouble falling or staying asleep, or sleeping too much: not at all 4. Feeling tired or having little energy: not at all 5. Poor appetite or overeating: not at all 6. Feeling bad about yourself - or that you are a failure or have let yourself or your family down: not at all 7. Trouble concentrating on things, such as reading the newspaper or watching television: not at all 8. Moving or speaking so slowly that other people could have noticed. Or the opposite - being so fidgety or restless that you have been moving around a lot more than usual: not at all 9. Thoughts that you would be better off or of hurting yourself in some way: not at all Total score: 0 Depression Screening Interpretation: Negative Depression Screening Done: Yes Source: Developed by Drs. Salas [place], Katarina Ramirez, Federico Aguilar and colleagues, with an educational tran from [employer]. Thrive Questionnaire Date Thrive assessed: 12/02/23 I am a: Patient What is your living situation today?: I have a steady place to live Within the past 12 months, did the food you bought not last and you didn't have the money to get more?: Never true Within the past 12 months, did you worry whether your food would run out before you got money to buy more?: Never true Do you have trouble paying for medicines?: No Do you have trouble getting transportation to medical appointments?: No Do you have trouble paying your heating and electricity bill?: No Do you have trouble taking care of your child, family member or friend?: No Do you have trouble with day-to-day activities such as bathing, preparing meals, shopping, managing finances, etc.?: No Are you currently unemployed and looking for a job?: No Are you interested in more education?: No THRIVE Score: 0 AUDIT C Alcohol Use Questionnaire (AUDIT-C) 1. How often do you have a drink containing alcohol?: Monthly or less 2. How many drinks containing alcohol do you have on a typical day when you are drinking?: 1 or 2 3. How often do you have six or more drinks on one occasion?: Never Total Score: 1 BEATRIZ-7 AMB Questionnaire BEATRIZ-7 Date BEATRIZ - 7 assessed: 12/02/23 Feeling nervous, anxious, or on edge: 0 = Not at all Not being able to stop or control worryin = Not at all Worrying too much about different things: 0 = Not at all Trouble relaxin = Not at all Being so restless that it is hard to sit still: 0 = Not at all Becoming easily annoyed or irritable: 0 = Not at all Feeling afraid as if something awful might happen: 0 = Not at all Total BEATRIZ-7 score (0-4 normal; 5-9 mild; 10-14 moderate; 15-21 severe): 0 Source: Developed by Drs. Salas [place], Katarina Ramirez, Federico Aguilar and colleagues, with an educational tran from [employer]. Review of Systems Const All systems reviewed & are unremarkable except as noted in HPI and below Reports no additional complaints Eyes Reports no additional complaints ENT Reports no additional complaints Card Reports no additional complaints Resp Reports no additional complaints GI Reports no additional complaints Reports no additional complaints Musc Reports no additional complaints Physical exam (Primary Care) Vital Signs: Last Vital Signs Pulse 80 12/02/23 07:44 BP 126/80 12/02/23 07:44 Pulse Ox 96 12/02/23 07:44 Oxygen Delivery Method Room Air 12/02/23 07:44 BMI result Body Mass Index 32.9 Tobacco/Smoking Status: Tobacco use Status Tobacco use date assessed 12/02/23 12/02/23 07:48 Patient Tobacco Use Status Former Tobacco user 12/02/23 07:48 e-Cigarette/Vaping Use Never Used 12/02/23 07:48 PHQ-9: PHQ-9 Score PHQ-9: Total score 0 12/02/23 07:48 Depression Screening Interpretation: Negative Thrive Assessment: Date of Thrive Assessment Date Thrive assessed 12/02/23 12/02/23 07:53 Const General: no acute distress HENMT Head: Yes normal to inspection Ears: hearing grossly normal bilaterally General nose exam: Normal external nose present Face and sinus: Yes normal facial exam Throat: Yes posterior oropharynx normal Eyes General: appearance normal, both eyes and all related structures Neck Neck: Yes no lymphadenopathy and Yes supple Resp Effort & Inspection: normal respiratory effort Auscultation: clear to auscultation bilaterally Cardio Rhythm: regular rhythm Heart sounds: S1 normal heart sound present and S2 normal heart sound present GI Inspection: Yes normal to inspection Palpation (GI): Soft to palpation Percussion: Yes normal to percussion Auscultation: normal bowel sounds Assessment and Plan Assessment & Plan (1) Hyperglycemia: Comment: A1C 6.3 12/18 Code(s): R73.9 - Hyperglycemia, unspecified Plan: A1C IS 6.3, ADA diet, exercise, weight loss discussed, Pt declined meds (2) Hyperlipidemia: Code(s): E78.5 - Hyperlipidemia, unspecified Plan: Continue crestor (3) Hypothyroid: Code(s): E03.9 - Hypothyroidism, unspecified Plan: Increase levothyroxine to 50 mcg, check TSH in 2 months (4) HTN (hypertension): Comment: stop Olmesartan with hydrochlorothiazide because of episodes of recurrent allergic reactions, hives 12/18 Code(s): I10 - Essential (primary) hypertension Plan: stop Olmesartan with hydrochlorothiazide start amlodipine 5 mg a day follow-up in 2 months (5) Abnormal colonoscopy: Comment: 2017 POLYPS, 03/16 NEGATIVE recheck 2 yrs f/u Dr. Juarez Code(s): R93.3 - Abnormal findings on diagnostic imaging of other parts of digestive tract (6) Ulcerative colitis: Comment: not active for 2 years, no tx Code(s): K51.90 - Ulcerative colitis, unspecified, without complications (7) Hyperparathyroidism: Comment: s/p parathyroidectomy 2017 Code(s): E21.3 - Hyperparathyroidism, unspecified Plan: Monitor calcium level (8) Annual physical exam: Code(s): Z00.00 - Encounter for general adult medical examination without abnormal findings Plan: Well-balanced diet regular physical activity weight loss discussed with the patient. She is up-to-date with the mammogram (9) Normal pelvic exam: Comment: negative pap 2020 Code(s): Z01.419 - Encounter for gynecological examination (general) (routine) without abnormal findings Medications: New amlodipine 5 mg PO DAILY 90 tabs 0RF Coding Level of Care Code Est Pt Prev Care 40-64y(15334) Diagnoses Hyperglycemia R73.9 Hyperlipidemia E78.5 Hypothyroid E03.9 HTN (hypertension) I10 Abnormal colonoscopy R93.3 Ulcerative colitis K51.90 Hyperparathyroidism E21.3 Annual physical exam Z00.00 Normal pelvic exam Z01.419
== END 2023-12-02 09:12 | disposition home or self-care (01) ==
PROVIDERS: PCP Internal Medicine; Visit Provider Internal Medicine
DX: Z00.00 Encounter for general adult medical examination without abnormal findings (principal); K51.90 Ulcerative colitis, unspecified, without complications; E21.3 Hyperparathyroidism, unspecified; R73.9 Hyperglycemia, unspecified; E78.5 Hyperlipidemia, unspecified; E03.9 Hypothyroidism, unspecified; I10 Essential (primary) hypertension; R93.3 Abnormal findings on diagnostic imaging of other parts of digestive tract
CPT/HCPCS: 99396

== ENCOUNTER 2024-12-22 13:54 | Outpatient (AMB) | payer OTHER, SELFPAY ==
[2024-12-22 13:57] VITALS: PULSE 82; TEMP 36.7; O2SAT 96; BMI 31.6
--- NOTE | 2024-12-22 13:57 | A.OFFPC_ITS ---
Vital Signs 12/22/24 13:57 Height 5 ft 2 in Weight 173 lb BMI 31.6 Pulse 82 Pulse Source Pulse Oximeter Temp 98.1 F Temp Source Oral Pulse Oximetry (%) 96 Oxygen Delivery Method Room Air Intake Visit Reasons: PE Intake Note: Pt is here today for PE. Allergies nitrofurantoin [From Macrobid] Adverse Reaction (Verified 12/22/24 13:58) dry heves Sulfa (Sulfonamide Antibiotics) Adverse Reaction (Verified 12/22/24 13:58) hives Tobacco use date assessed: 12/22/24 Fall risk assessment: No Falls in past year Last assessed Fall Risk: 12/22/24 Dental Screening Dental Screen Date: 12/22/24 Did you have a dental visit in the last 12 months?: No Did you have a dental problem in the last 6 months where you did not have access to dental care?: Yes Was dental information given to patient?: Yes HPI PE HPI Details Patient presents for physical. She has not been taking amlodipine for hypertension and would like to restart olmesartan. [facility] Medical History (Updated 12/22/24 @ 14:36 by Karen Duval MD) History of kidney stones Hypercalcemia Hyperglycemia Hyperlipidemia Hypothyroid Annual physical exam Gestational diabetes mellitus HTN (hypertension) Abnormal colonoscopy Ulcerative colitis Hyperparathyroidism Nephrolithiasis Hip pain, right Hx of nephrolithotomy with removal of calculi Surgical History History of total right hip replacement Hx of parathyroidectomy Hx of section Family History Mother Mental health disorder Father No problems noted. Social History (Updated 12/22/24 @ 14:34 by Karen Duval MD) Household Members Other:: , special education aid [facility] Housing: House Patient Tobacco Use Status: Former Tobacco user Years Smoked: 10 yrs e-Cigarette/Vaping Use: Never Used Second Hand Smoke Exposure: No service: No Current occupational status: employed Cognitive needs: No Hearing needs: No Vision needs: No Questionnaire PHQ-9 Over the last 2 weeks, how often have you been bothered by any of the following problems? 1. Little interest or pleasure in doing things: not at all 2. Feeling down, depressed, or hopeless: not at all 3. Trouble falling or staying asleep, or sleeping too much: several days 4. Feeling tired or having little energy: not at all 5. Poor appetite or overeating: not at all 6. Feeling bad about yourself - or that you are a failure or have let yourself or your family down: not at all 7. Trouble concentrating on things, such as reading the newspaper or watching television: not at all 8. Moving or speaking so slowly that other people could have noticed. Or the opposite - being so fidgety or restless that you have been moving around a lot more than usual: not at all 9. Thoughts that you would be better off or of hurting yourself in some way: not at all Total score: 1 Depression Screening Interpretation: Negative Depression Screening Done: Yes 77493 - PHQ-9 Billing: Yes Source: Developed by Drs. Salas [place], Katarina Ramirez, Federico Aguilar and colleagues, with an educational tran from [employer]. Thrive Questionnaire Date Thrive assessed: 12/22/24 I am a: Patient What is your living situation today?: I have a steady place to live Within the past 12 months, did the food you bought not last and you didn't have the money to get more?: Never true Within the past 12 months, did you worry whether your food would run out before you got money to buy more?: Never true Do you have trouble paying for medicines?: No Do you have trouble getting transportation to medical appointments?: No Do you have trouble paying your heating and electricity bill?: No Do you have trouble taking care of your child, family member or friend?: No Do you have trouble with day-to-day activities such as bathing, preparing meals, shopping, managing finances, etc.?: No Are you currently unemployed and looking for a job?: No Are you interested in more education?: No Please select the resources that you would like help with: None Currently or been in a relationship where the following occur: I choose not to answer THRIVE Score: 0 AUDIT C Alcohol Use Questionnaire (AUDIT-C) 1. How often do you have a drink containing alcohol?: Monthly or less 2. How many drinks containing alcohol do you have on a typical day when you are drinking?: 1 or 2 3. How often do you have six or more drinks on one occasion?: Never Total Score: 1 BEATRIZ-7 AMB Questionnaire BEATRIZ-7 Date BEATRIZ - 7 assessed: 12/22/24 Feeling nervous, anxious, or on edge: 0 = Not at all Not being able to stop or control worryin = Not at all Worrying too much about different things: 0 = Not at all Trouble relaxin = Not at all Being so restless that it is hard to sit still: 0 = Not at all Becoming easily annoyed or irritable: 0 = Not at all Feeling afraid as if something awful might happen: 0 = Not at all Total BEATRIZ-7 score (0-4 normal; 5-9 mild; 10-14 moderate; 15-21 severe): 0 Source: Developed by Drs. Salas [place], Katarina Ramirez, Federico Aguilar and colleagues, with an educational tran from [employer]. BEATRIZ-7 Assessment Billing BEATRIZ-7 Assessment Tool: BEATRIZ-7 Assessment 06008 Review of Systems Const All systems reviewed & are unremarkable except as noted in HPI and below Reports no additional complaints Eyes Reports no additional complaints ENT Reports no additional complaints Card Reports no additional complaints Resp Reports no additional complaints GI Reports no additional complaints Reports no additional complaints Physical exam (Primary Care) Vital Signs: Last Vital Signs Temp 98.1 F 12/22/24 13:57 Pulse 82 12/22/24 13:57 Pulse Ox 96 12/22/24 13:57 Oxygen Delivery Method Room Air 12/22/24 13:57 BMI result Body Mass Index 31.6 Tobacco/Smoking Status: Tobacco use Status Tobacco use date assessed 12/22/24 12/22/24 14:01 Patient Tobacco Use Status Former Tobacco user 12/22/24 14:01 e-Cigarette/Vaping Use Never Used 12/22/24 14:01 PHQ-9: PHQ-9 Score PHQ-9: Total score 1 12/22/24 14:04 Depression Screening Interpretation: Negative Thrive Assessment: Date of Thrive Assessment Date Thrive assessed 12/22/24 12/22/24 14:04 Currently or been in a relationship where the following occur: I choose not to answer Const General: no acute distress HENMT Head: Yes normal to inspection Ears: hearing grossly normal bilaterally General nose exam: Normal external nose present Mouth: Normal oral and palatal mucosa present Eyes General: appearance normal, both eyes and all related structures Neck Neck: Yes no lymphadenopathy and Yes supple Resp Effort & Inspection: normal respiratory effort Auscultation: clear to auscultation bilaterally Cardio Rhythm: regular rhythm Heart sounds: S1 normal heart sound present and S2 normal heart sound present GI Inspection: Yes normal to inspection Palpation (GI): Soft to palpation Percussion: Yes normal to percussion Auscultation: normal bowel sounds Coding Level of Care Code Est Pt Prev Care 40-64y(80312) Diagnoses Hyperlipidemia E78.5 Hypothyroid E03.9 Hyperparathyroidism E21.3 Normal pelvic exam Z01.419 HTN (hypertension) I10 Abnormal colonoscopy R93.3 Annual physical exam Z00.00 Additional Codes BEATRIZ-7 Assessment Billing - BEATRIZ-7 Assessment Tool: BEATRIZ-7 Assessment 00170 ([id number]) PHQ-9 - 09105 - PHQ-9 Billing: Yes ([id number]) Assessment & Plan Assessment & Plan (1) Hyperlipidemia: Code(s): E78.5 - Hyperlipidemia, unspecified Category: Medical Plan: Continue statin return for fasting blood work (2) Hypothyroid: Code(s): E03.9 - Hypothyroidism, unspecified Category: Medical Plan: Continue levothyroxine check TSH (3) Hyperparathyroidism: Comment: s/p parathyroidectomy 2017 Code(s): E21.3 - Hyperparathyroidism, unspecified Category: Medical Plan: Monitor calcium and vitamin-D (4) Normal pelvic exam: Comment: negative pap 2022, recheck 2025 Code(s): Z01.419 - Encounter for gynecological examination (general) (routine) without abnormal findings Category: Medical Plan: Due for Pap smear next year (5) HTN (hypertension): Code(s): I10 - Essential (primary) hypertension Category: Medical Plan: Restart olmesartan with hydrochlorothiazide 20/12.5 mg follow-up in 1 month (6) Abnormal colonoscopy: Comment: 2016 POLYPS, 03/16 NEGATIVE recheck 2 yrs f/u Dr. Juarez Code(s): R93.3 - Abnormal findings on diagnostic imaging of other parts of digestive tract Category: Medical Plan: Follow-up with GI (7) Annual physical exam: Code(s): Z00.00 - Encounter for general adult medical examination without abnormal findings Category: Medical Plan: Well-balanced diet regular physical activity discussed with the patient she will return for fasting blood work. Patient is up-to-date with the mammogram colonoscopy Orders: Orders Comprehensive [place]. Panel Fast 1 Week E03.9 - Hypothyroidism, unspecified, E21.3 - Hyperparathyroidism, unspecified, E78.5 - Hyperlipidemia, unspecified TSH reflex Free T4 1 Week E03.9 - Hypothyroidism, unspecified, E21.3 - Hyperparathyroidism, unspecified, E78.5 - Hyperlipidemia, unspecified Lipid Panel 1 Week E03.9 - Hypothyroidism, unspecified, E21.3 - Hyperparathyroidism, unspecified, E78.5 - Hyperlipidemia, unspecified Complete Blood Count Auto Diff 1 Week E03.9 - Hypothyroidism, unspecified, E21.3 - Hyperparathyroidism, unspecified, E78.5 - Hyperlipidemia, unspecified Hemoglobin A1c 1 Week E03.9 - Hypothyroidism, unspecified, E21.3 - Hyperparathyroidism, unspecified, E78.5 - Hyperlipidemia, unspecified Microalbumin, Random (w Creat) 1 Week E03.9 - Hypothyroidism, unspecified, E21.3 - Hyperparathyroidism, unspecified, E78.5 - Hyperlipidemia, unspecified Medications: New olmesartan-hydrochlorothiazide 20-12.5 mg 1 tab PO DAILY 90 tabs 0RF Changed From albuterol sulfate 90 mcg/actuation (ProAir HFA) 2 puffs inhalation Q4-6H PRN 8.5 grams 3RF shortness of breath or wheezing To albuterol sulfate 90 mcg/actuation 2 puffs inhalation Q4-6H PRN 8.5 grams 3RF shortness of breath or wheezing Refilled rosuvastatin (Crestor) 20 mg PO DAILY 90 tabs 3RF Discontinued amlodipine Discontinued Reason: Doctor's Order 5 mg PO DAILY 90 tabs 0RF
== END 2024-12-22 14:25 | disposition home or self-care (01) ==
PROVIDERS: PCP Internal Medicine; Visit Provider Internal Medicine
DX: E78.5 Hyperlipidemia, unspecified (principal); E03.9 Hypothyroidism, unspecified; E21.3 Hyperparathyroidism, unspecified; Z01.419 Encounter for gynecological examination (general) (routine) without abnormal findings; I10 Essential (primary) hypertension; R93.3 Abnormal findings on diagnostic imaging of other parts of digestive tract; Z00.00 Encounter for general adult medical examination without abnormal findings

== ENCOUNTER → 2024-12-22 13:54 | Outpatient (BNVA) | payer OTHER, SELFPAY | PROVIDERS: PCP Internal Medicine; Visit Provider Internal Medicine | DX: Z00.00 Encounter for general adult medical examination without abnormal findings (principal); E78.5 Hyperlipidemia, unspecified; E03.9 Hypothyroidism, unspecified; E21.3 Hyperparathyroidism, unspecified; I10 Essential (primary) hypertension; R93.3 Abnormal findings on diagnostic imaging of other parts of digestive tract; Z79.899 Other long term (current) drug therapy | CPT/HCPCS: 96127 ==

== ENCOUNTER 2024-12-29 07:54 | Outpatient (REF) | payer OTHER, SELFPAY ==
[2024-12-29 10:09] LABS: MANUAL DIFF FLAG NO
[2024-12-29 10:25] LABS: Basophils Absolute Auto 0.1 X10*3/uL (0.0-0.2); Basophils Percent Auto 0.8 % (0-2); Eosinophils Absolute Auto 0.3 X10*3/uL (0.0-0.4); Eosinophils Percent Auto 3.1 % (0-4); Hematocrit 37.1 % (37.0-47.0); Hemoglobin 11.3 g/dl (12.0-16.0); Imm Gran Abs Auto 0.02 X10*3/uL (0.00-0.03); Imm Gran Pct Auto 0.2 % (0.0-0.4); Lymphocytes Absolute Auto 2.6 X10*3/uL (1.2-4.9); Lymphocytes Percent Auto 31.5 % (20-40); Mean Corpuscular HGB Conc 30.5 g/dl (31.0-35.0); Mean Corpuscular Hemoglobin 23.5 pg (27.0-33.0); Mean Corpuscular Volume 77.3 fL (80.0-98.0); Mean Platelet Volume 9.9 fL (9.4-12.3); Monocytes Absolute Auto 0.8 X10*3/uL (0.1-1.2); Neutrophils Absolute Auto 4.5 x10*3/uL (2.0-8.3); Neutrophils Percent Auto 54.4 % (45-73); Platelet Count 357 X10*3/uL (160-400); Red Cell Distribution Width 16.4 % (11.0-16.0); White Blood Count 8.3 X10*3/uL (4.8-10.8)
[2024-12-29 10:35] LABS: Alanine Aminotransferase 17 U/L (0-31); Albumin Level 4.2 g/dL (3.5-5.0); Alkaline Phosphatase 99 U/L (39-117); Anion Gap 11 (12-20); Aspartate Amino Transferase 20 U/L (5-31); Bilirubin Total 0.5 mg/dL (0.0-1.0); Blood Urea Nitrogen 22 mg/dL (9-16); Carbon Dioxide 30 mmol/L (22-29); Chloride 102 mmol/L (96-108); Cholesterol 230 mg/dL (<200); Estimated Glomerular Filt Rate 53; Glucose Fasting 117 mg/dL (60-99); HDL Cholesterol 51 mg/dL (>40); LDL Cholesterol Calculated 154 mg/dL (<100); Sodium 139 mmol/L (135-145); Total Protein 8.1 g/dL (6.5-8.0); Triglycerides 128 mg/dL (<150)
[2024-12-29 10:43] LABS: Estimated Average Glucose 134 mg/dL; Hemoglobin A1C 133.5268 umol/L; Hemoglobin A1c % 6.3 % (<6.0); Total Hemoglobin (HGBA1C) 2973.7942 umol/L
[2024-12-29 10:56] LABS: TSH reflex Free T4 2.53 uIU/mL (0.32-4.0)
== END 2024-12-29 07:55 | disposition home or self-care (01) ==
LOC: HO.HMGCLDS 07:54
PROVIDERS: PCP Internal Medicine; Visit Provider Internal Medicine
DX: E78.5 Hyperlipidemia, unspecified (principal); E03.9 Hypothyroidism, unspecified; E21.3 Hyperparathyroidism, unspecified; Z13.1 Encounter for screening for diabetes mellitus
CPT/HCPCS: 36415; 80053; 80061; 83036; 84443; 85025

== ENCOUNTER 2025-01-17 07:55 | Outpatient (REF) | payer OTHER, SELFPAY | END 2025-01-17 07:56 | disposition home or self-care (01) | LOC: HO.MAMMO 07:55 | PROVIDERS: PCP Internal Medicine; Visit Provider Internal Medicine | DX: Z12.31 Encounter for screening mammogram for malignant neoplasm of breast (principal) | CPT/HCPCS: 77063; 77067 ==

== ENCOUNTER → 2025-01-17 08:00 | Outpatient (BNV) | payer OTHER, SELFPAY | PROVIDERS: PCP Internal Medicine; Visit Provider Internal Medicine | DX: Z12.31 Encounter for screening mammogram for malignant neoplasm of breast (principal) | CPT/HCPCS: 77063; 77067 ==

== ENCOUNTER 2025-01-19 07:33 | Outpatient (REF) | payer OTHER, SELFPAY ==
[2025-01-19 10:53] LABS: Iron 32 mcg/dL (30-160); Percent Iron Saturation 8 % (15-50); Total Iron Binding Capacity 380 mcg/dL (228-428); Unsaturated Iron Binding 348 ug/dL
[2025-01-19 11:18] LABS: Folate 15.5 ng/mL (> or = 4.0); Vitamin B12 673 pg/mL (200-900)
== END 2025-01-19 07:34 | disposition home or self-care (01) ==
LOC: HO.HMGCLDS 07:33
PROVIDERS: PCP Internal Medicine; Visit Provider Internal Medicine
DX: D64.9 Anemia, unspecified (principal)
CPT/HCPCS: 36415; 82607; 82746; 83540

== ENCOUNTER 2025-01-22 11:03 | Outpatient (AMB) | payer OTHER, SELFPAY ==
[2025-01-22 11:20] VITALS: BP 136/86; PULSE 82; RESP 18; TEMP 36.8; O2SAT 96; BMI 31.6
--- NOTE | 2025-01-22 11:20 | MHC.PC.OV ---
Vital Signs 01/22/25 11:20 Height 5 ft 2 in Weight 173 lb BMI 31.6 BP 136/86 Blood Pressure Location Lt brachial Position Sitting Respiration 18 Pulse 82 Pulse Source Pulse Oximeter Temp 98.3 F Temp Source Oral Pulse Oximetry (%) 96 Oxygen Delivery Method Room Air Intake Visit Reasons: 1 month f/up- update insurance Intake Note: Pt is here today for 1 month follow up visit. Allergies nitrofurantoin [From Macrobid] Adverse Reaction (Verified 01/22/25 11:27) dry heves Sulfa (Sulfonamide Antibiotics) Adverse Reaction (Verified 01/22/25 11:27) hives Tobacco use date assessed: 01/22/25 Dental Screening Dental Screen Date: 12/22/24 HPI 1 month f/up- update insurance HPI Details Pt presents for HTN and hyperlipid, stable on meds. [facility] Medical History History of kidney stones Hypercalcemia Hyperglycemia Hyperlipidemia Hypothyroid Annual physical exam Gestational diabetes mellitus HTN (hypertension) Abnormal colonoscopy Ulcerative colitis Hyperparathyroidism Nephrolithiasis Hip pain, right Hx of nephrolithotomy with removal of calculi Surgical History History of total right hip replacement Hx of parathyroidectomy Hx of section Family History Mother Mental health disorder Father No problems noted. Social History Household Members Other:: , special education aid [facility] Housing: House Patient Tobacco Use Status: Former Tobacco user Years Smoked: 10 yrs e-Cigarette/Vaping Use: Never Used Second Hand Smoke Exposure: No service: No Current occupational status: employed Cognitive needs: No Hearing needs: No Vision needs: No Questionnaire Thrive Questionnaire Date Thrive assessed: 12/22/24 I am a: Patient What is your living situation today?: I have a steady place to live Within the past 12 months, did the food you bought not last and you didn't have the money to get more?: Never true Within the past 12 months, did you worry whether your food would run out before you got money to buy more?: Never true Do you have trouble paying for medicines?: No Do you have trouble getting transportation to medical appointments?: No Do you have trouble paying your heating and electricity bill?: No Do you have trouble taking care of your child, family member or friend?: No Do you have trouble with day-to-day activities such as bathing, preparing meals, shopping, managing finances, etc.?: No Are you currently unemployed and looking for a job?: No Are you interested in more education?: No Please select the resources that you would like help with: None Currently or been in a relationship where the following occur: I choose not to answer THRIVE Score: 0 BEATRIZ-7 AMB Questionnaire BEATRIZ-7 Date BEATRIZ - 7 assessed: 12/22/24 Source: Developed by Drs. Salas [place], Katarina Ramirez, Federico Aguilar and colleagues, with an educational tran from [employer] Review of Systems Const All systems reviewed & are unremarkable except as noted in HPI and below Eyes Reports no additional complaints ENT Reports no additional complaints Card Reports no additional complaints Resp Reports no additional complaints GI Reports no additional complaints Reports no additional complaints Physical exam (Primary Care) Vital Signs: Last Vital Signs Temp 98.3 F 01/22/25 11:20 Pulse 82 01/22/25 11:20 Resp 18 01/22/25 11:20 BP 136/86 01/22/25 11:20 Pulse Ox 96 01/22/25 11:20 Oxygen Delivery Method Room Air 01/22/25 11:20 BMI result Body Mass Index 31.6 Tobacco/Smoking Status: Tobacco use Status Tobacco use date assessed 01/22/25 01/22/25 11:31 Patient Tobacco Use Status Former Tobacco user 01/22/25 11:20 e-Cigarette/Vaping Use Never Used 01/22/25 11:20 Thrive Assessment: Date of Thrive Assessment Date Thrive assessed 12/22/24 01/22/25 11:20 Currently or been in a relationship where the following occur: I choose not to answer Const General: no acute distress HENMT Head: Yes normal to inspection Ears: hearing grossly normal bilaterally Eyes General: appearance normal, both eyes and all related structures Neck Neck: Yes supple Resp Effort & Inspection: normal respiratory effort Auscultation: clear to auscultation bilaterally Cardio Rhythm: regular rhythm Heart sounds: S1 normal heart sound present and S2 normal heart sound present GI Inspection: Yes normal to inspection Coding Level of Care Code Est Pt Level 4 (44565) Diagnoses HTN (hypertension) I10 Hypothyroid E03.9 Hyperlipidemia E78.5 Hyperglycemia R73.9 Assessment & Plan Assessment & Plan (1) HTN (hypertension): Code(s): I10 - Essential (primary) hypertension Category: Medical Plan: Continue half a tablet of olmesartan with hydrochlorothiazide (2) Hypothyroid: Code(s): E03.9 - Hypothyroidism, unspecified Category: Medical Plan: Continue levothyroxine (3) Hyperlipidemia: Code(s): E78.5 - Hyperlipidemia, unspecified Category: Medical Plan: Patient restarted rosuvastatin (4) Hyperglycemia: Comment: A1C 6.3 12/18 Code(s): R73.9 - Hyperglycemia, unspecified Category: Medical Plan: Continue ADA diet increase physical activity weight loss discussed with the patient. She declined taking medications. Follow-up in 6 months with a fasting labs before Orders: Orders TSH reflex Free T4 6 Months E03.9 - Hypothyroidism, unspecified, E78.5 - Hyperlipidemia, unspecified, I10 - Essential (primary) hypertension, R73.9 - Hyperglycemia, unspecified Hemoglobin A1c 6 Months E03.9 - Hypothyroidism, unspecified, E78.5 - Hyperlipidemia, unspecified, I10 - Essential (primary) hypertension, R73.9 - Hyperglycemia, unspecified Comprehensive [place]. Panel Fast 6 Months E03.9 - Hypothyroidism, unspecified, E78.5 - Hyperlipidemia, unspecified, I10 - Essential (primary) hypertension, R73.9 - Hyperglycemia, unspecified Complete Blood Count Auto Diff 6 Months E03.9 - Hypothyroidism, unspecified, E78.5 - Hyperlipidemia, unspecified, I10 - Essential (primary) hypertension, R73.9 - Hyperglycemia, unspecified Lipid Panel 6 Months E03.9 - Hypothyroidism, unspecified, E78.5 - Hyperlipidemia, unspecified, I10 - Essential (primary) hypertension, R73.9 - Hyperglycemia, unspecified
== END 2025-01-22 12:52 | disposition home or self-care (01) ==
LOC: HO.HMCC 11:03
PROVIDERS: PCP Internal Medicine; Visit Provider Internal Medicine
DX: I10 Essential (primary) hypertension (principal); E03.9 Hypothyroidism, unspecified; E78.5 Hyperlipidemia, unspecified; R73.9 Hyperglycemia, unspecified

== ENCOUNTER → 2025-01-22 11:03 | Outpatient (BNVA) | payer SELFPAY | PROVIDERS: PCP Internal Medicine; Visit Provider Internal Medicine | DX: I10 Essential (primary) hypertension (principal); E03.9 Hypothyroidism, unspecified; E78.5 Hyperlipidemia, unspecified; R73.9 Hyperglycemia, unspecified; Z79.899 Other long term (current) drug therapy | CPT/HCPCS: 99212 ==

== ENCOUNTER 2025-07-26 10:27 | Outpatient (AMB) | payer MEDICARE, SELFPAY ==
--- NOTE | 2025-07-26 10:33 | MHC.PC.OV ---
Vital Signs 07/26/25 10:34 Height 5 ft 2 in Weight 167 lb BMI 30.5 BP 110/80 Blood Pressure Location Lt brachial Position Sitting Respiration 18 Pulse 98 Pulse Source Pulse Oximeter Temp 98.3 F Temp Source Oral Pulse Oximetry (%) 97 Oxygen Delivery Method Room Air Intake Visit Reasons: Pre op cataract surgery L eye 08/03 Dr. Muhammad Intake Note: Pt is here today for a pre op visit. Pt is having L eye cataract surgery on 08/03/[address] Muhammad Allergies nitrofurantoin (From Macrobid) Adverse Reaction (Verified 07/26/25 10:36) dry heves Sulfa (Sulfonamide Antibiotics) Adverse Reaction (Verified 07/26/25 10:36) hives Medication List - Last Reconciled 07/26/25 by Karen Duval MD acetaminophen ER (Tylenol Arthritis Pain) 650 mg PO Q12H albuterol sulfate 90 mcg/actuation 2 puffs inhalation Q4-6H PRN levothyroxine 25 mcg PO DAILY olmesartan-hydrochlorothiazide 20-12.5 mg 1 tab PO DAILY omeprazole 20 mg PO DAILY rosuvastatin (Crestor) 20 mg PO DAILY Tobacco use date assessed: 07/26/25 Fall risk assessment: No Falls in past year Last assessed Fall Risk: 07/26/25 Dental Screening Dental Screen Date: 12/22/24 HPI Pre op cataract surgery L eye 08/03 Dr. Muhammad HPI Details Patient presents for a preop cataract surgery. Hypertension hyperlipidemia are controlled on current medications [facility] Medical History History of kidney stones Hypercalcemia Hyperglycemia Hyperlipidemia Hypothyroid Annual physical exam Gestational diabetes mellitus HTN (hypertension) Abnormal colonoscopy Ulcerative colitis Hyperparathyroidism Nephrolithiasis Hip pain, right Hx of nephrolithotomy with removal of calculi Surgical History History of total right hip replacement Hx of parathyroidectomy Hx of section Family History Mother Mental health disorder Father No problems noted. Social History Household Members Other:: , special education aid [facility] Housing: House Patient Tobacco Use Status: Former Tobacco user Years Smoked: 10 yrs e-Cigarette/Vaping Use: Never Used Second Hand Smoke Exposure: No service: No Current occupational status: employed Cognitive needs: No Hearing needs: No Vision needs: No Questionnaire PHQ-9 Over the last 2 weeks, how often have you been bothered by any of the following problems? 1. Little interest or pleasure in doing things: not at all 2. Feeling down, depressed, or hopeless: not at all 3. Trouble falling or staying asleep, or sleeping too much: several days 4. Feeling tired or having little energy: not at all 5. Poor appetite or overeating: not at all 6. Feeling bad about yourself - or that you are a failure or have let yourself or your family down: not at all 7. Trouble concentrating on things, such as reading the newspaper or watching television: not at all 8. Moving or speaking so slowly that other people could have noticed. Or the opposite - being so fidgety or restless that you have been moving around a lot more than usual: not at all 9. Thoughts that you would be better off or of hurting yourself in some way: not at all Total score: 1 Depression Screening Interpretation: Negative Depression Screening Done: Yes Source: Developed by Drs. Salas [place], Katarina Ramirez, Federico Aguilar and colleagues, with an educational tran from [employer]. Thrive Questionnaire Date Thrive assessed: 12/22/24 I am a: Patient What is your living situation today?: I have a steady place to live Within the past 12 months, did the food you bought not last and you didn't have the money to get more?: Never true Within the past 12 months, did you worry whether your food would run out before you got money to buy more?: Never true Do you have trouble paying for medicines?: No Do you have trouble getting transportation to medical appointments?: No Do you have trouble paying your heating and electricity bill?: No Do you have trouble taking care of your child, family member or friend?: No Do you have trouble with day-to-day activities such as bathing, preparing meals, shopping, managing finances, etc.?: No Are you currently unemployed and looking for a job?: No Are you interested in more education?: No Please select the resources that you would like help with: None Currently or been in a relationship where the following occur: I choose not to answer THRIVE Score: 0 BEATRIZ-7 AMB Questionnaire BEATRIZ-7 Date BEATRIZ - 7 assessed: 12/22/24 Feeling nervous, anxious, or on edge: 0 = Not at all Not being able to stop or control worryin = Not at all Worrying too much about different things: 0 = Not at all Trouble relaxin = Not at all Being so restless that it is hard to sit still: 0 = Not at all Becoming easily annoyed or irritable: 0 = Not at all Feeling afraid as if something awful might happen: 0 = Not at all Total BEATRIZ-7 score (0-4 normal; 5-9 mild; 10-14 moderate; 15-21 severe): 0 Source: Developed by Drs. Salas [place], Katarina Ramirez, Federico Aguilar and colleagues, with an educational tran from [employer]. Review of Systems Const All systems reviewed & are unremarkable except as noted in HPI and below Eyes Reports no additional complaints ENT Reports no additional complaints Card Reports no additional complaints Resp Reports no additional complaints GI Reports no additional complaints Reports no additional complaints Physical exam (Primary Care) Vital Signs: Last Vital Signs Temp 98.3 F 07/26/25 10:34 Pulse 98 07/26/25 10:34 Resp 18 07/26/25 10:34 BP 110/80 07/26/25 10:34 Pulse Ox 97 07/26/25 10:34 Oxygen Delivery Method Room Air 07/26/25 10:34 BMI result Body Mass Index 30.5 Tobacco/Smoking Status: Tobacco use Status Tobacco use date assessed 07/26/25 07/26/25 10:39 Patient Tobacco Use Status Former Tobacco user 07/26/25 10:39 e-Cigarette/Vaping Use Never Used 07/26/25 10:39 PHQ-9: PHQ-9 Score PHQ-9: Total score 1 07/26/25 10:39 Depression Screening Interpretation: Negative Thrive Assessment: Date of Thrive Assessment Date Thrive assessed 12/22/24 07/26/25 10:39 Currently or been in a relationship where the following occur: I choose not to answer Const General: no acute distress HENMT Head: Yes normal to inspection Throat: Yes posterior oropharynx normal Eyes General: appearance normal, both eyes and all related structures Neck Neck: Yes supple Resp Effort & Inspection: normal respiratory effort Auscultation: clear to auscultation bilaterally Cardio Rhythm: regular rhythm Heart sounds: S1 normal heart sound present and S2 normal heart sound present Coding Level of Care Code Est Pt Level 4 (43452) Diagnoses Anemia D64.9 HTN (hypertension) I10 Hypothyroid E03.9 Hyperlipidemia E78.5 Cataract H26.9 Assessment & Plan Assessment & Plan (1) Anemia: Comment: Borderline low iron saturation Code(s): D64.9 - Anemia, unspecified Category: Medical Plan: Continue iron supplement check CBC and iron count (2) HTN (hypertension): Code(s): I10 - Essential (primary) hypertension Category: Medical Plan: Continue current medications (3) Hypothyroid: Code(s): E03.9 - Hypothyroidism, unspecified Category: Medical Plan: Continue levothyroxine (4) Hyperlipidemia: Code(s): E78.5 - Hyperlipidemia, unspecified Category: Medical Plan: Continue statin (5) Cataract: Code(s): H26.9 - Unspecified cataract Category: Medical Plan: Patient is medically cleared for cataract surgery Orders: Orders IRON PROFILE Today D64.9 - Anemia, unspecified Comprehensive [place]. Panel Fast 5 Months E03.9 - Hypothyroidism, unspecified, E55.9 - Vitamin D deficiency, unspecified, E78.5 - Hyperlipidemia, unspecified, I10 - Essential (primary) hypertension, R73.9 - Hyperglycemia, unspecified Lipid Panel 5 Months E03.9 - Hypothyroidism, unspecified, E55.9 - Vitamin D deficiency, unspecified, E78.5 - Hyperlipidemia, unspecified, I10 - Essential (primary) hypertension, R73.9 - Hyperglycemia, unspecified Microalbumin, Random (w Creat) 5 Months E03.9 - Hypothyroidism, unspecified, E55.9 - Vitamin D deficiency, unspecified, E78.5 - Hyperlipidemia, unspecified, I10 - Essential (primary) hypertension, R73.9 - Hyperglycemia, unspecified TSH reflex Free T4 5 Months E03.9 - Hypothyroidism, unspecified, E55.9 - Vitamin D deficiency, unspecified, E78.5 - Hyperlipidemia, unspecified, I10 - Essential (primary) hypertension, R73.9 - Hyperglycemia, unspecified Hemoglobin A1c 5 Months E03.9 - Hypothyroidism, unspecified, E55.9 - Vitamin D deficiency, unspecified, E78.5 - Hyperlipidemia, unspecified, I10 - Essential (primary) hypertension, R73.9 - Hyperglycemia, unspecified Vitamin D 25-OH Total 5 Months E03.9 - Hypothyroidism, unspecified, E55.9 - Vitamin D deficiency, unspecified, E78.5 - Hyperlipidemia, unspecified, I10 - Essential (primary) hypertension, R73.9 - Hyperglycemia, unspecified IRON PROFILE 5 Months E03.9 - Hypothyroidism, unspecified, E55.9 - Vitamin D deficiency, unspecified, E78.5 - Hyperlipidemia, unspecified, I10 - Essential (primary) hypertension, R73.9 - Hyperglycemia, unspecified
[2025-07-26 10:34] VITALS: BP 110/80; PULSE 98; RESP 18; TEMP 36.8; O2SAT 97; BMI 30.5
--- OUTSIDE RECORDS SUMMARY | 2025-07-26 12:03 | XMS_ITS | Clinical Summary ---
Author Organization [facility] Address [address] [place] [address] Care Team Providers Care Load Blocker Name Role Phone Jorge Tang DO Primary Care Provider [phone]- [phone] Allergies Active Allergy Reactions Criticality Noted Date Comments Iodinated Contrast Media Other (See Comments) 12/07/2017 In past per pt (asthma attack) Latex Rash Low 12/07/2017 Sulfa (Sulfonamide Antibiotics) Hives 12/07/2017 Medications albuterol (PROVENTIL HFA;VENTOLIN HFA) 90 mcg/actuation inhaler Inhale 2 puffs every 4 (four) hours as needed for wheezing. Active levothyroxine (SYNTHROID, LEVOTHROID) 88 MCG tablet Take 88 mcg by mouth daily at 6:30 am. Active omeprazole (PRILOSEC) 20 MG delayed release capsule Take 20 mg by mouth daily at 6:30 am. Active dilTIAZem 240 MG extended release 24 hr capsule Take 240 mg by mouth once daily. Active acetaminophen (TYLENOL) 500 MG tablet Take 1,000 mg by mouth as needed. Active cholecalciferol, vitamin D3, 5,000 unit capsule Take by mouth once daily. Active mesalamine (LIALDA) 1.2 gram enteric coated tablet Take 1.2 g by mouth once daily. Active Active Problems Problem Noted Date Diagnosed Date Hyperplasia of parathyroid 12/07/2017 Social History Tobacco Use Types Packs/Day Years Used Date Smoking Tobacco: Former Cigarettes Q uit: 1987 Smokeless Tobacco: Never Alcohol Use Standard Drinks/Week Comments Yes 0 (1 standard drink = 0.6 oz pur e alcohol) rarely Comments No Sex and Gender Information Value Date Recorded Sex Assigned at Not on file Legal Sex Female 8:32 AM EST Gender Identity Not on file Sexual Orientation Not on file Last Filed Vital Signs Vital Sign Reading Time Taken Comments Blood Pressure 128/60 12/21/2017 12:15 PM EST Pulse 60 12/21/2017 12:15 PM EST Temperature 36.5 C (97.7 F) 12/21/2017 12:15 PM EST Respiratory Rate 15 12/21/2017 12:15 PM EST Oxygen Saturation 95% 12/21/2017 12:15 PM EST Inhaled Oxygen Concentration - - Weight 73.5 kg (162 lb) 12/07/2017 10:36 AM EST Height 157.5 cm (5' 2 ) 12/07/2017 10:36 AM EST Body Mass Index 29.63 12/07/2017 10:36 AM EST Plan of Treatment Not on file Insurance [employer] [facility] [place] [place] Care Teams Load Blocker Relationship Specialty Start Date End Date Jorge Tang DO [address] [facility] [address] [place], [place] [id number] PCP - General Family Medicine 12/07/17
== END 2025-07-26 11:00 | disposition home or self-care (01) ==
LOC: HO.HMCC 10:28
PROVIDERS: PCP Internal Medicine; Visit Provider Internal Medicine
DX: D64.9 Anemia, unspecified (principal); I10 Essential (primary) hypertension; E03.9 Hypothyroidism, unspecified; E78.5 Hyperlipidemia, unspecified; H26.9 Unspecified cataract

== ENCOUNTER → 2025-07-26 10:27 | Outpatient (BNVA) | payer MEDICARE, SELFPAY | PROVIDERS: PCP Internal Medicine; Visit Provider Internal Medicine | DX: Z01.818 Encounter for other preprocedural examination (principal); H26.9 Unspecified cataract; I10 Essential (primary) hypertension; E78.5 Hyperlipidemia, unspecified; D64.9 Anemia, unspecified; E03.9 Hypothyroidism, unspecified; Z79.899 Other long term (current) drug therapy | CPT/HCPCS: 96127; 99212 ==

== ENCOUNTER 2025-08-21 12:27 | Outpatient (REF) | payer MEDICARE, SELFPAY ==
--- OUTSIDE RECORDS SUMMARY | 2025-08-21 15:42 | XMS_ITS | Clinical Summary ---
Author Organization [facility] Address [address] [place] [address] Care Team Providers Care Brass Finisher Name Role Phone Jorge Tang DO Primary Care Provider [phone]- [phone] Allergies Active Allergy Reactions Criticality Noted Date [...] Plan of Treatment Not on file Insurance [employer] [facility] [place] [place] Care Teams Brass Finisher Relationship Specialty Start Date End Date Jorge Tang DO [address] [facility] [address] [place], [place] [id number] PCP - General Family Medicine 12/07/17
[2025-08-21 16:28] LABS: MANUAL DIFF FLAG NO
[2025-08-21 16:50] LABS: Hematocrit 41.8 % (37.0-47.0); Hemoglobin 12.9 g/dl (12.0-16.0); Imm Gran Abs Auto 0.02 X10*3/uL (0.00-0.03); Imm Gran Pct Auto 0.2 % (0.0-0.4); Lymphocytes Absolute Auto 2.6 X10*3/uL (1.2-4.9); Mean Corpuscular HGB Conc 30.9 g/dl (31.0-35.0); Mean Corpuscular Hemoglobin 26.1 pg (27.0-33.0); Mean Corpuscular Volume 84.6 fL (80.0-98.0); NRBC Abs Auto 0.000 X10*3/uL (0.0-0.012); NRBC Pct Auto 0.0 /100WBC (0.0-0.2); Platelet Count 308 X10*3/uL (160-400); Red Blood Count 4.94 X10*6/uL (4.20-5.50); White Blood Count 8.8 X10*3/uL (4.8-10.8)
[2025-08-21 17:07] LABS: Alanine Aminotransferase 19 U/L (0-31); Albumin Level 4.6 g/dL (3.5-5.0); Alkaline Phosphatase 89 U/L (39-117); Anion Gap 13 (12-20); Aspartate Amino Transferase 24 U/L (5-31); Blood Urea Nitrogen 18 mg/dL (9-16); Calcium 9.9 mg/dL (8.4-10.2); Carbon Dioxide 30 mmol/L (22-29); Chloride 105 mmol/L (96-108); Cholesterol 177 mg/dL (<200); Estimated Glomerular Filt Rate 55; HDL Cholesterol 56 mg/dL (>40); Iron 72 mcg/dL (30-160); Percent Iron Saturation 20 % (15-50); Potassium 4.6 mmol/L (3.3-5.1); Sodium 143 mmol/L (135-145); Total Iron Binding Capacity 355 mcg/dL (228-428); Total Protein 7.8 g/dL (6.5-8.0); Triglycerides 122 mg/dL (<150); Unsaturated Iron Binding 283 ug/dL
== END 2025-08-21 12:28 | disposition home or self-care (01) ==
LOC: HO.HMGCLDS 12:27
PROVIDERS: PCP Internal Medicine; Visit Provider Internal Medicine
DX: I10 Essential (primary) hypertension (principal); E78.5 Hyperlipidemia, unspecified; E03.9 Hypothyroidism, unspecified; R73.9 Hyperglycemia, unspecified; D64.9 Anemia, unspecified
CPT/HCPCS: 36415; 80053; 80061; 83036; 83540; 84443; 85025